=== PATIENT | female | born 1960 | race Two or more races ===

== ENCOUNTER 2023-06-11 09:52 | Outpatient (CLI) | payer MEDICARE ==
[2023-06-11 11:05] LABS: Hemoglobin 13.3 g/dL (12.0-15.5); Mean Corpuscular HGB CONC 34.1 g/dL (32.0-36.0); Mean Corpuscular Hemoglobin 31.4 pg (27.0-33.0); Platelet Count 219 10x3/uL (150-450); RBC Distribution Width 14.3 % (11.5-14.5); Red Blood Cell (RBC) Count 4.24 10x6/uL (3.90-5.03); White Blood Cell (WBC) Count 7.7 10x3/uL (3.5-10.5)
[2023-06-11 11:18] LABS: Anion Gap 12 mmol/L (10-20); BUN (Urea Nitrogen) 13 mg/dL (9.8-20.1); Calc. Creatinine Clearance 0 mL/min (70-130); Carbon Dioxide 26 mmol/L (23-31); Chloride 108 mmol/L (98-107); Estimated GFR 85; Glucose 116 mg/dL (80-115); Potassium 4.2 mmol/L (3.5-5.1); Sodium 142 mmol/L (136-145)
== END 2023-06-11 09:53 | disposition home or self-care (01) ==
LOC: LABBT 09:52
PROVIDERS: ATTEND Specialist
DX: Z01.818 Encounter for other preprocedural examination (principal); J32.3 Chronic sphenoidal sinusitis; J32.2 Chronic ethmoidal sinusitis; J32.0 Chronic maxillary sinusitis; J32.1 Chronic frontal sinusitis; J34.3 Hypertrophy of nasal turbinates
CPT/HCPCS: 80048; 85027; 93005; 93010

== ENCOUNTER 2023-06-13 08:10 | Day surgery (SDC) | payer MEDICARE ==
[2023-06-11 10:41] VITALS: BMI 30.9
[2023-06-13] MEDS ORDERED: fentaNYL PF 100 MCG/2 ML SYRINGE ONE (10:04)
[2023-06-13] MEDS ORDERED: Dexamethasone 4 mg/ml Vial ONE (10:04)
[2023-06-13] MEDS ORDERED: Lidocaine 1% PF 5 ML VIAL ONE (10:04)
[2023-06-13] MEDS ORDERED: Rocuronium Bromide 10 MG/ML (10ML VIAL) ONE (10:04)
[2023-06-13] MEDS ORDERED: Ondansetron PF 4 MG/2 ML Vial ONE (10:04)
[2023-06-13] MEDS ORDERED: PROPOFOL 40 ML ONE (10:05)
[2023-06-13] MEDS ORDERED: SUGAMMADEX SODIUM 200 MG/2 ML VIAL ONE (10:05)
[2023-06-13] MEDS ORDERED: EPINEPHrine 1 MG/ML VIAL ONE ×2 (10:54→11:44)
[2023-06-13] MEDS ORDERED: Oxymetazoline HCl 0.05% (30 ML BOT) ONE ×2 (10:54→11:13)
[2023-06-13] MEDS ORDERED: Bacitracin Zinc Ointment 30 gm TUBE ONE (10:55)
[2023-06-13] MEDS ORDERED: Lidocaine 1% (PF) 30 ML VIAL ONE (10:55)
[2023-06-13] MEDS ORDERED: Esmolol 100 MG/10 ML VIAL ONE (11:35)
[2023-06-13] MEDS ORDERED: Triamcinolone 40 MG/ML VIAL ONE (12:36)
== END 2023-06-13 14:44 | disposition home or self-care (01) ==
LOC: SDC 08:10
PROVIDERS: ATTEND Specialist
PROC: 09TT8ZZ Resection of Left Frontal Sinus, Via Natural or Artificial Opening Endoscopic (ICD-10-PCS; principal; 2023-06-13)
PROC: 09TW8ZZ Resection of Right Sphenoid Sinus, Via Natural or Artificial Opening Endoscopic (ICD-10-PCS; 2023-06-13)
PROC: 09TX8ZZ Resection of Left Sphenoid Sinus, Via Natural or Artificial Opening Endoscopic (ICD-10-PCS; 2023-06-13)
PROC: 09TQ8ZZ Resection of Right Maxillary Sinus, Via Natural or Artificial Opening Endoscopic (ICD-10-PCS; 2023-06-13)
PROC: 09TR8ZZ Resection of Left Maxillary Sinus, Via Natural or Artificial Opening Endoscopic (ICD-10-PCS; 2023-06-13)
PROC: 09TS8ZZ Resection of Right Frontal Sinus, Via Natural or Artificial Opening Endoscopic (ICD-10-PCS; 2023-06-13)
DX: J34.3 Hypertrophy of nasal turbinates (principal); J32.0 Chronic maxillary sinusitis; J32.1 Chronic frontal sinusitis; J32.2 Chronic ethmoidal sinusitis; J32.3 Chronic sphenoidal sinusitis; K11.21 Acute sialoadenitis; K21.00 Gastro-esophageal reflux disease with esophagitis, without bleeding; G47.33 Obstructive sleep apnea (adult) (pediatric); H93.8X3 Other specified disorders of ear, bilateral; E78.00 Pure hypercholesterolemia, unspecified; I10 Essential (primary) hypertension; J45.909 Unspecified asthma, uncomplicated; E11.9 Type 2 diabetes mellitus without complications; Z88.5 Allergy status to narcotic agent; Z88.1 Allergy status to other antibiotic agents; Z79.82 Long term (current) use of aspirin; Z79.899 Other long term (current) drug therapy
CPT/HCPCS: 30140; 31253; 31267; 61782; J0171; J1100; J2001; J2405; J2704; J3301